=== PATIENT | female | born 1995 | race Caucasian/White ===

== ENCOUNTER → 2017-02-18 | Outpatient (CLI) | payer OTHER ==
[~2017-02-18] MED LIST: PROM25TA9 PO; TRAM-10 PO; ZFRODT/8 PO
[2017-02-18 19:55] LABS: BLOOD UREA NITROGEN 9 mg/dl (7-18); BUN/CREATININE RATIO 10.8 (10-20); CALCIUM 9.4 mg/dl (8.5-10.1); CARBON DIOXIDE 26 mmol/L (21-32); CHLORIDE 106 mmol/L (98-107); CREATININE 0.85 mg/dl (0.60-1.20); GLUCOSE 89 mg/dl (70-99); SODIUM 139 mmol/L (136-145)
[2017-02-19 07:30] LABS: ESTIMATED AVERAGE GLUCOSE 100 mg/dl; HA1C FLAG Normal (Normal)
== END | disposition home or self-care (01) ==
LOC: C.LABPVFM 12:10
PROVIDERS: ATTEND Nurse Practitioner Family
DX: R53.1 Weakness (principal)

== ENCOUNTER → 2017-05-07 | Outpatient (CLI) | payer OTHER ==
[~2017-05-07] MED LIST changes: -PROM25TA9 PO; -TRAM-10 PO
== END | disposition home or self-care (01) ==
LOC: C.LABPVFM 11:49
PROVIDERS: ATTEND Family Medicine
DX: N12 Tubulo-interstitial nephritis, not specified as acute or chronic (principal)

== ENCOUNTER → 2017-06-24 | Outpatient (CLI) | payer OTHER ==
--- NOTE | 2017-06-24 09:54 | DIAGNOSTIC IMAGING REPORT ---
RETROPERITONEAL COMPLETE CLINICAL HISTORY: 22 years-old Female presenting with UTI. TECHNIQUE: Real-time grayscale and limited color Doppler ultrasound imaging of the kidneys and bladder was performed. COMPARISON: 02/19/[address] from 01/28/2016.. FINDINGS: Right kidney: Normal echogenicity. Right kidney measures 10 cm. No hydronephrosis. No convincing evidence of calculus or mass. Normal perfusion. Left kidney: Normal echogenicity. Left kidney measures 10.3 cm. No hydronephrosis. No convincing evidence of calculus or mass. Normal perfusion. Bladder: Mildly trabeculated bladder wall. Bilateral ureteral jets present. Other: None. IMPRESSION: 1. Normal renal ultrasound. No obstruction. 2. Mildly trabeculated bladder wall, nonspecific. This could be seen in the setting of obstruction or, more likely, chronic inflammation from cystitis. Electronically signed by: Abraham Stover M.D. 06/24/2017 9:53 AM Dictated Date/Time: 06/24/2017 9:51 AM
== END | disposition home or self-care (01) ==
LOC: C.ULTR 09:19
PROVIDERS: ATTEND Nurse Practitioner Adult Health
DX: N39.0 Urinary tract infection, site not specified (principal)

== ENCOUNTER → 2017-08-03 | Outpatient (CLI) | payer OTHER ==
[2017-08-05 23:56] LABS: GUINEA PIG ALLERGEN IGE <0.10 KU/L; GUINEA PIG CLASS 0
== END | disposition home or self-care (01) ==
LOC: C.LABPVFM 14:11
PROVIDERS: ATTEND Family Medicine Adult Medicine
DX: J34.89 Other specified disorders of nose and nasal sinuses (principal)

== ENCOUNTER → 2017-08-13 | Outpatient (CLI) | payer OTHER ==
[2017-08-13 12:29] LABS: BASO % 0.6 %; BASO ABS # 0.04 K/uL (0-0.2); COMPLETE YES; EOS % 2.5 %; HEMATOCRIT 44.7 % (37-47); IG% 0.1 %; LYMPH % 42.1 %; MEAN CELL VOLUME 85.8 fL (80-100); MEAN CORPUSCULAR HEMOGLOBIN 29.9 pg (25-34); MEAN CORPUSCULAR HGB CONC 34.9 g/dl (32-36); MEAN PLATELET VOLUME 10.3 fL (7.4-10.4); MONO % 9.4 %; NEUT % 45.3 %; PLATELET COUNT 205 K/uL (130-400); RED BLOOD COUNT 5.21 M/uL (4.2-5.4); WHITE BLOOD COUNT 7.12 K/uL (4.8-10.8)
[2017-08-13 13:15] LABS: BLOOD UREA NITROGEN 13 mg/dl (7-18); BUN/CREATININE RATIO 15.3 (10-20); CALCIUM 9.3 mg/dl (8.5-10.1); CARBON DIOXIDE 25 mmol/L (21-32); CHLORIDE 106 mmol/L (98-107); CREATININE 0.83 mg/dl (0.60-1.20); GLUCOSE 81 mg/dl (70-99); POTASSIUM 3.9 mmol/L (3.5-5.1); SODIUM 138 mmol/L (136-145)
== END | disposition home or self-care (01) ==
LOC: C.LABPVFM 10:08
PROVIDERS: ATTEND Family Medicine
DX: R55 Syncope and collapse (principal)

== ENCOUNTER 2017-09-27 16:42 | Emergency (ER) | payer OTHER ==
[~2017-09-27] VITALS: Ht 157.5 cm; Wt 49.3 kg
[2017-09-27 16:47] VITALS: TEMP 36.9; Ht 157.5 cm; Wt 49.3 kg
--- NOTE | 2017-09-27 17:13 | EMERGENCY ROOM VISIT NOTE ---
History First contact with patient: 16:54 Chief Complaint: ABDOMINAL PAIN Stated Complaint: PAIN IN STOMACH Nursing Triage Summary: "I've been having pains in my stomach. It started yesterday." She relates bilateral pain from the umbilicus to beneath the ribs. Nauseated. History of Present Illness The patient is a 22 year old female who presents to the Emergency Room with complaints of abdominal pain that started at approximately 8 AM this morning. The patient describes the pain as sharp and intermittent. It started in the left lower quadrant. She is now feeling it on the right side and also in the upper abdomen. He has been nauseated without vomiting. Her last bowel movement was this morning and reported normal. The patient does have a history of constipation. She also has a history of ovarian cysts. The patient denies any vaginal discharge or bleeding. She uses the Karly IUD for control. She is sexually active with one partner. She denies any fever or chills. She took ibuprofen with fairly good pain relief Review of Systems 10 system review performed and negative unless noted in HPI or below Past Medical/Surgical History Medical Problems: (1) Dehydration, mild (2) Enterocolitis (3) No Known Active Medical Problems Constipation, ovarian cysts Social History Smoking Status: Current Every Day Smoker Alcohol Use: none Marital Status: single Housing Status: lives with significant other Current/Historical Medications No Active Prescriptions or Reported Meds Physical Exam Vital Signs Date Time Temp Pulse Resp B/P (MAP) Pulse Ox O2 Delivery O2 Flow Rate FiO2 09/27/17 22:52 78 18 98/63 99 Room Air 09/27/17 20:28 81 16 106/67 97 Room Air 09/27/17 19:01 83 16 107/70 100 Room Air 09/27/17 16:47 36.9 97 20 103/67 100 Room Air Physical Exam VITALS: Vitals are noted on the nurse's note and reviewed by myself. Vital signs stable. GENERAL: 22-year-old female, in no acute distress, nondiaphoretic, well- developed well-nourished. SKIN: The skin was without rashes, erythema, edema, or bruising. HEAD: Normocephalic atraumatic. MOUTH: Mucous membranes moist. NECK: Supple without nuchal rigidity. No lymphadenopathy. Cervical spine is nontender. No JVD. HEART: Regular rate and rhythm without murmurs gallops or rubs. LUNGS: Clear to auscultation bilaterally without wheezes, rales or rhonchi. No accessory muscle use. ABDOMEN: Positive bowel sounds x 4.Soft, tenderness to palpation in the left lower quadrant and right lower quadrant, without organomegaly. No guarding or rebound tenderness. MUSCULOSKELETAL: No muscle atrophy, erythema, or edema noted.. Strength 5/5 throughout. NEURO: Patient was alert and oriented to person place and time. Normal sensation to touch. No focal neurological deficits. Medical Decision & Procedures ER Provider Diagnostic Interpretation: CT abdomen and pelvis IV and oral contrast Patient Name: KRYSTEN TERRELL Unit Number: [id number] Dictated: 09/27/172246 Transcribed: 09/27/172246 [employer] Printed Date/Time: [~ rep prt dt]/[~ rep prt tm] [~ rep ct labl] - [~ rep ct ivnm] [facility] Radiology Department [place] [id number] Dictated: 09/27/172246 Transcribed: 09/27/172246 [employer] Printed Date/Time: [~ rep prt dt]/[~ rep prt tm] [~ rep ct labl] - [~ rep ct ivnm] IMPRESSION: 1. Moderate bladder wall thickening. This likely represents a cystitis. Recommend correlation with urinalysis. 2. No bowel wall thickening or obstruction. 3. Normal appendix. Electronically signed by: Lennox Richardson M.D. 09/27/2017 10:54 PM Dictated Date/Time: 09/27/2017 10:47 PM The status of this report is Signed. Draft = Not yet reviewed or approved by Radiologist. Signed = Reviewed and approved by Radiologist. <AttendingPhy></AttendingPhy> <FamilyPhy>Lisette Ellington C.R.NMichaelP</FamilyPhy> < PrimaryPhy>Lisette Ellington C.R.N.P</PrimaryPhy> <UnitNumber>[id number]</ UnitNumber> <VisitNumber>[id number]</VisitNumber> <PatientName>KRYSTEN TERRELL</PatientName> <DateOfBirth>1995</DateOfBirth> <Location>[facility]</ Location> <ServiceDate>09/27/17</ServiceDate> <MNE>ESINDI</MNE> <OrderingPhy> Paty Varghese PA-C</OrderingPhy> <OrderingPhyMNE>f rep ord dr chacko</ OrderingPhyMNE> <DictatingPhyMNE>f rep dict dr chacko</DictatingPhyMNE> <CCListMNE> f rep ct mne</CCListMNE> <AdmittingPhyMNE>f pt admit dr chacko</AdmittingPhyMNE> < AttendingPhyMNE>f pt attend dr chacko</AttendingPhyMNE> <ConsultingPhyMNE>f pt consult dr chacko</ConsultingPhyMNE> <FamilyPhyMNE>f pt fam dr chacko</FamilyPhyMNE> <OtherPhyMNE>f pt other dr chacko</OtherPhyMNE> < PrimaryPhyMNE>f pt prim care dr chacko</PrimaryPhyMNE> <ReferringPhyMNE>f pt referring dr chacko</ReferringPhyMNE> Pelvic ultrasound Patient Name: KRYSTEN TERRELL Unit Number: [id number] Dictated: 09/27/171920 Transcribed: 09/27/171920 Tuee Printed Date/Time: [~ rep prt dt]/[~ rep prt tm] [~ rep ct labl] - [~ rep ct ivnm] [facility] [place] [address] Dictated: 09/27/171920 Transcribed: 09/27/171920 [employer] Printed Date/Time: [~ rep prt dt]/[~ rep prt tm] [~ rep ct labl] - [~ rep ct ivnm] IMPRESSION: No significant abnormality identified within the pelvis. The intrauterine device is in good position. Electronically signed by: Lennox Richardson M.D. 09/27/2017 7:22 PM Dictated Date/Time: 09/27/2017 7:21 PM The status of this report is Signed. Draft = Not yet reviewed or approved by Radiologist. Signed = Reviewed and approved by Radiologist. <AttendingPhy></AttendingPhy> <FamilyPhy>Lisette Ellington C.R.N.P</FamilyPhy> < PrimaryPhy>Lisette Ellington C.R.N.P</PrimaryPhy> <UnitNumber>[id number]</ UnitNumber> <VisitNumber>[id number]</VisitNumber> <PatientName>KRYSTEN TERRELL</PatientName> <DateOfBirth>1995</DateOfBirth> <Location>[facility]</ Location> <ServiceDate>09/27/17</ServiceDate> <MNE>ESINDI</MNE> <OrderingPhy> Paty Varghese PA-C</OrderingPhy> <OrderingPhyMNE>f rep ord dr chacko</ OrderingPhyMNE> <DictatingPhyMNE>f rep dict dr chacko</DictatingPhyMNE> <CCListMNE> f rep ct mne</CCListMNE> <AdmittingPhyMNE>f pt admit dr chacko</AdmittingPhyMNE> < AttendingPhyMNE>f pt attend dr chacko</AttendingPhyMNE> <ConsultingPhyMNE>f pt consult dr chacko</ConsultingPhyMNE> <FamilyPhyMNE>f pt fam dr chacko</FamilyPhyMNE> <OtherPhyMNE>f pt other dr chacko</OtherPhyMNE> < PrimaryPhyMNE>f pt prim care dr chacko</PrimaryPhyMNE> <ReferringPhyMNE>f pt referring dr chacko</ReferringPhyMNE> Laboratory Results 09/27/17 16:57 Red Blood Count 4.73, Mean Corpuscular Volume 86.0, Mean Corpuscular Hemoglobin 30.0, Mean Corpuscular Hemoglobin Concent 34.9, Mean Platelet Volume 9.6, Neutrophils (%) (Auto) 78.2, Lymphocytes (%) (Auto) 16.5, Monocytes (%) (Auto) 4.6, Eosinophils (%) (Auto) 0.3, Basophils (%) (Auto) 0.2, Neutrophils # (Auto) 10.29, Lymphocytes # (Auto) 2.17, Monocytes # (Auto) 0.60, Eosinophils # (Auto) 0.04, Basophils # (Auto) 0.02 09/27/17 16:57 Test 09/27/17 16:57 09/27/17 18:25 White Blood Count 13.15 K/uL (4.8-10.8) Red Blood Count 4.73 M/uL (4.2-5.4) Hemoglobin 14.2 g/dL (12.0-16.0) Hematocrit 40.7 % (37-47) Mean Corpuscular Volume 86.0 fL (80-100) Mean Corpuscular Hemoglobin 30.0 pg (25-34) Mean Corpuscular Hemoglobin Concent 34.9 g/dl (32-36) Platelet Count 178 K/uL (130-400) Mean Platelet Volume 9.6 fL (7.4-10.4) Neutrophils (%) (Auto) 78.2 % Lymphocytes (%) (Auto) 16.5 % Monocytes (%) (Auto) 4.6 % Eosinophils (%) (Auto) 0.3 % Basophils (%) (Auto) 0.2 % Neutrophils # (Auto) 10.29 K/uL (1.4-6.5) Lymphocytes # (Auto) 2.17 K/uL (1.2-3.4) Monocytes # (Auto) 0.60 K/uL (0.11-0.59) Eosinophils # (Auto) 0.04 K/uL (0-0.5) Basophils # (Auto) 0.02 K/uL (0-0.2) RDW Standard Deviation 40.0 fL (36.4-46.3) RDW Coefficient of Variation 12.6 % (11.5-14.5) Immature Granulocyte % (Auto) 0.2 % Immature Granulocyte # (Auto) 0.03 K/uL (0.00-0.02) Anion Gap 10.0 mmol/L (3-11) Est Creatinine Clear Calc Drug Dose 91.9 ml/min Estimated GFR () 130.9 Estimated GFR (Non- 112.9 BUN/Creatinine Ratio 15.8 (10-20) Calcium Level 9.3 mg/dl (8.5-10.1) Total Bilirubin 1.0 mg/dl (0.2-1) Aspartate Amino Transf (AST/SGOT) 17 U/L (15-37) Alanine Aminotransferase (ALT/SGPT) 32 U/L (12-78) Alkaline Phosphatase 69 U/L (45-117) Total Protein 7.6 gm/dl (6.4-8.2) Albumin 4.2 gm/dl (3.4-5.0) Globulin 3.4 gm/dl (2.5-4.0) Albumin/Globulin Ratio 1.2 (0.9-2) Lipase 144 U/L (73-393) Urine Color YELLOW Urine Appearance CLEAR (CLEAR) Urine pH 5.0 (4.5-7.5) Urine Specific [place] 1.015 (1.000-1.030) Urine Protein NEG (NEG) Urine Glucose (UA) NEG (NEG) Urine Ketones NEG (NEG) Urine Occult Blood TRACE (NEG) Urine Nitrite NEG (NEG) Urine Bilirubin NEG (NEG) Urine Urobilinogen NEG (NEG) Urine Leukocyte Esterase SMALL (NEG) Urine WBC (Auto) 1-5 /hpf (0-5) Urine RBC (Auto) 0-4 /hpf (0-4) Urine Hyaline Casts (Auto) 1-5 /lpf (0-5) Urine Epithelial Cells (Auto) >30 /lpf (0-5) Urine Bacteria (Auto) NEG (NEG) Urine Test NEG (NEG) Medications Administered Medications (Trade) Dose Ordered Sig/Elissa Route Start Time Stop Time Status Last Admin Dose Admin Morphine Sulfate (MoRPHine SULFATE INJ) 4 mg Q1H PRN IV 09/27/17 19:15 10/11/17 19:14 09/27/17 19:26 4 MG Ondansetron HCl (Zofran Inj) 4 mg Q2H PRN IV 09/27/17 19:15 10/27/17 19:14 09/27/17 20:27 4 MG ED Course Patient was seen and examined Vital signs including blood pressure were reviewed medications list was verified with patient Labs were obtained, and a saline lock was established The patient was reassessed after ultrasound. She was complaining of pain. She was given morphine 4 mg IV. She was also given Zofran [address] was ordered and reviewed. The findings were discussed with the patient. She voiced understanding. The patient was complaining of nausea, however this is improved. She is comfortable being discharged home. She was given a home pack of tramadol and Phenergan I reviewed discharge instructions the patient. They voiced understanding and had no further questions. Medical Decision DIFFERENTIAL DIAGNOSIS: Gastroenteritis, Hepatitis, cholecystitis, cholangitis, biliary colic, pancreatitis, appendicitis, inguinal hernia, nephrolithiasis, inflammatory bowel disease, mesenteric adenitis, peptic ulcer disease, GERD, gastritis, pancreatitis,, bowel obstruction, splenic infarct, diverticulitis, mesenteric ischemia, metabolic, peritonitis, ovarian cyst, ovarian torsion, ectopic , uterine fibroid This patient is a 22-year-old female that presents emergency department with sharp, intermittent lower abdominal pain on exam, she was tender in the left lower and right lower quadrants. There is no guarding or rebound tenderness. She was nontoxic in appearance. She is afebrile. I thought she may have a recurrent ovarian cysts. Her labs reveal mild leukocytosis. Her pelvic ultrasound did not show any signs of abnormalities. I ordered a CT of the abdomen to rule out appendicitis. This was negative for any acute findings. The patient to get nauseous in the emergency department. I believe this is likely secondary to the morphine she received for pain. When I reevaluated her , she was resting comfortably in bed. She denied any nausea. The pain was improved. We discussed disposition options. She was comfortable being discharged home. I believe that her pain and nausea could be coming from some constipation, which is chronic in nature. She was instructed to take a stool softener daily and addition to one dose of MiraLAX tomorrow. She will follow a bland diet. She was instructed to follow up closely with her primary care physician. She will call tomorrow morning for a follow-up appointment. She will also return to the emergency department with a new, worsening or persistent symptoms This chart was completed in part utilizing [employer] Speech Voice Recognition software. Attempts were made to minimize the grammatical errors, random word insertions, pronoun errors and incomplete sentences. Any formal questions or concerns about the content, text or information contained within the body of this dictation should be directly addressed to the provider for clarification. Medication Reconcilliation Current Medication List: was personally reviewed by me Blood Pressure Screening Patient's blood pressure: Normal blood pressure Impression Primary Impression: Abdominal pain Departure Information Dispostion Home / Self-Care Condition GOOD Prescriptions Promethazine Hcl (Phenergan) 25 Mg Tab 25 MG PO Q6H Y for Nausea, #10 TAB Prov: Paty Varghese PA-C 09/27/17 Tramadol (Ultram) 50 Mg Tab 50 MG PO Q4H Y for Pain, #9 TAB Prov: Paty Varghese PA-C 09/27/17 Referrals Lisette Ellington C.R.N.P (PCP) Patient Instructions My [facility] Additional Instructions You were evaluated in the emergency department for abdominal pain and nausea. Please take Phenergan every 6 hours as needed for nausea. Ibuprofen 400 mg and/or Tylenol 500 mg every 8 hours. You may also alternate these medications for more effective pain relief: Ibuprofen --4 HRS--> Tylenol --4 HRS--> ibuprofen --4 HRS--> Tylenol .... Please take Ultram for severe pain. 1 tab every 4 hours as needed. The CAT scan did reveal some constipation. Please take an [id number] stool softener such as Colace twice daily for 3 days. Please also take one dose of MiraLAX tomorrow morning Please follow-up with your primary care physician as soon as possible. Call tomorrow morning for a follow-up appointment. Please return to the emergency department with any new, worsening or concerning symptoms School Instructions Return To School: 1 day
[2017-09-27 17:17] LABS: BASO % 0.2 %; BASO ABS # 0.02 K/uL (0-0.2); COMPLETE YES; EOS % 0.3 %; HEMATOCRIT 40.7 % (37-47); IG% 0.2 %; LYMPH % 16.5 %; LYMPH ABS # 2.17 K/uL (1.2-3.4); MEAN CORPUSCULAR HGB CONC 34.9 g/dl (32-36); MEAN PLATELET VOLUME 9.6 fL (7.4-10.4); MONO % 4.6 %; NEUT % 78.2 %; PLATELET COUNT 178 K/uL (130-400); RED BLOOD COUNT 4.73 M/uL (4.2-5.4); WHITE BLOOD COUNT 13.15 K/uL (4.8-10.8)
[2017-09-27 17:30] LABS: BUN/CREATININE RATIO 15.8 (10-20); CALCIUM 9.3 mg/dl (8.5-10.1); CREATININE 0.76 mg/dl (0.60-1.20); POTASSIUM 3.4 mmol/L (3.5-5.1)
[2017-09-27 17:33] LABS: ALB/GLOB RATIO 1.2 (0.9-2)
[2017-09-27 18:40] LABS: URINE APPEARANCE CLEAR (CLEAR); URINE BILIRUBIN NEG (NEG); URINE COLOR YELLOW; URINE EPITHELIAL CELL AUTO >30 /lpf (0-5); URINE NITRITE NEG (NEG); URINE SPECIFIC GRAVITY 1.015 (1.000-1.030); UROBILINOGEN NEG (NEG)
[2017-09-27 18:43] LABS: MANUAL MICROSCOPIC REQUIRED? NO; REVIEW REQ? NO
[2017-09-27] MEDS ORDERED: MoRPHine SULFATE 4 MG/ML 1 ML CARP\\VIAL IV PRN (19:15)
--- NOTE | 2017-09-27 19:24 | DIAGNOSTIC IMAGING REPORT ---
PELVIC ULTRASOUND, TRANSABDOMINAL AND TRANSVAGINAL HISTORY: LLQ and RLQ abd pain hx of ovarian cysts COMPARISON: Pelvic ultrasound 03/05/2012. FINDINGS: Uterus: 7.8 x 3.0 x 5.0 cm. Endometrial stripe: 3 mm in thickness. The intrauterine device is in good position. Right ovary: Normal in size and demonstrates normal color flow. A 2.4 cm cyst. Left ovary: Normal in size and demonstrates normal color flow. Miscellaneous:No pelvic free fluid. IMPRESSION: No significant abnormality identified within the pelvis. The intrauterine device is in good position. Electronically signed by: Lennox Richardson M.D. 09/27/2017 7:22 PM Dictated Date/Time: 09/27/2017 7:21 PM
[2017-09-27] MEDS: ONDANSETRON INJ 2 MG/ML 2 ML VIAL IV PRN ×2 (19:25→20:27)
[2017-09-27] MEDS ORDERED: OPTIRAY 320 IV PRN (21:45)
[2017-09-27] MEDS ORDERED: PROMETHAZINE HCL INJ 12.5 MG in SODIUM CHLORIDE 0.9% 50ML 50 ML IV STA (22:11)
--- NOTE | 2017-09-27 22:55 | DIAGNOSTIC IMAGING REPORT ---
ABDOMEN AND PELVIS CT WITH IV AND ORAL CONTRAST CT DOSE: 272.04 mGy.cm HISTORY: Right lower quadrant and left lower quadrant pain. TECHNIQUE: Multiaxial CT images of the abdomen and pelvis were performed following the use of intravenous and oral contrast. A dose lowering technique was utilized adhering to the principles of ALARA. COMPARISON STUDY: Pelvic ultrasound 09/27/2017. Abdomen and pelvis CT 01/28/2016. FINDINGS: The lung bases are clear. No pneumoperitoneum. No pneumatosis. No fractures within the visualized osseous structures. The liver, gallbladder, spleen, adrenal glands, and pancreas are unremarkable. There is a left circumaortic renal vein. No retroperitoneal lymphadenopathy. A 2.2 cm right ovarian cyst. Normal left ovary. The intrauterine device is in good position. There are few subcentimeter bilateral renal hypodense lesions. These are too small to characterize but favor cysts. No hydronephrosis. Moderate bladder wall thickening. No bowel wall thickening or obstruction. Normal appendix. IMPRESSION: 1. Moderate bladder wall thickening. This likely represents a cystitis. Recommend correlation with urinalysis. 2. No bowel wall thickening or obstruction. 3. Normal appendix. Electronically signed by: Lennox Richardson M.D. 09/27/2017 10:54 PM Dictated Date/Time: 09/27/2017 10:47 PM
[2017-09-27] MEDS ORDERED: PROM25TA9 PO (23:12)
[2017-09-27] MEDS ORDERED: TRAM-10 PO (23:12)
[2017-09-27] MEDS ORDERED: TRAMADOL HCL 50 MG HOME PACK PO ONE (23:15)
[2017-09-27] MEDS ORDERED: PHENERGAN 25MG HOMEPACK PO ONE (23:15)
[2017-09-27 23:44] VITALS: BP 100/62; PULSE 72; O2SAT 98
== END 2017-09-27 23:46 | disposition home or self-care (01) ==
LOC: C.EDB 16:43 → C.EDC 23:46
DX: R10.84 Generalized abdominal pain (principal); R11.0 Nausea; K59.00 Constipation, unspecified; F17.200 Nicotine dependence, unspecified, uncomplicated; N83.209 Unspecified ovarian cyst, unspecified side

== ENCOUNTER → 2017-09-29 | Outpatient (CLI) | payer OTHER ==
[~2017-09-29] MED LIST changes: +PROM25TA9 PO; +TRAM-10 PO; -ZFRODT/8 PO
== END | disposition home or self-care (01) ==
LOC: C.LABPVFM 12:49
PROVIDERS: ATTEND Nurse Practitioner
DX: N39.0 Urinary tract infection, site not specified (principal)

== ENCOUNTER → 2017-09-29 | Outpatient (CLI) | payer OTHER ==
[2017-10-02 12:09] LABS: CHLAMYDIA TRACH RNA*** NOT DETECTED (NOT DETECTED); GC (NEIS GONORRHOEAE)RNA** NOT DETECTED (NOT DETECTED); TRICHOMONAS VAGINALIS RNA** NOT DETECTED (NOT DETECTED)
== END | disposition home or self-care (01) ==
LOC: C.LABSPEC 17:37
PROVIDERS: ATTEND Physician Assistant
DX: N89.8 Other specified noninflammatory disorders of vagina (principal)

== ENCOUNTER → 2017-12-01 | Outpatient (CLI) | payer OTHER | END | disposition home or self-care (01) | LOC: C.LAB1850 09:41 | PROVIDERS: ATTEND Physician Assistant | DX: Z33.1 Pregnant state, incidental (principal) ==

== ENCOUNTER → 2017-12-31 | Outpatient (CLI) | payer OTHER ==
[2017-12-31 13:40] LABS: PROLACTIN 10.43 ng/mL
[2017-12-31 13:41] LABS: LUTEINIZING HORMONE 13.7 IU/L
[2017-12-31 13:42] LABS: FOLLICLE STIMULAT HORMONE 6.67 IU/L
== END | disposition home or self-care (01) ==
LOC: C.LAB1850 10:49
PROVIDERS: ATTEND Physician Assistant
DX: N92.6 Irregular menstruation, unspecified (principal)

== ENCOUNTER 2020-09-24 10:45 | Inpatient (IN) ==
[2020-09-24] MEDS ORDERED: OXYTOCIN 30 UNITS/500 ML BAG IV PRN (12:04)
--- NOTE | 2020-09-24 12:11 | History & Physical Report ---
Date of Service September 24, 2020 Assessment & Plan (1) Uterine contractions at greater than 20 weeks of gestation: 25 years old G1, P0 at 39 weeks and 5 days of gestation, presenting to labor and delivery with contractions and cervical change. Vital signs stable afebrile, heart rate reassuring, GBS negative, Plan to admit monitor and epidural for pain per patient request and anticipate vaginal delivery. All questions were answered. (2) Tobacco smoking affecting : History of Present Illness Primary Care Provider: Elvis Prieto DO Patient is a 25-year-old G1, P0 at 39 weeks and 5 days of gestation who is presenting today with uterine contractions started at 1 AM and got more regular and painful. after 6 AM She was here in labor and delivery this morning and her cervix was 1 cm and was sent home. She denies leakage of fluid or vaginal bleeding. She reports good movements. Her has been complicated by tobacco use and history of septum/arcuate uterus. growth has been normal per ultrasound. GBS negative. Allergies Allergy/AdvReac Type Severity Reaction Status Date / Time No Known Allergies Allergy Mild Unverified 03/28/20 04:11 Home Medications Medication Instructions Recorded Confirmed Type iron 1 tab PO DAILY 09/24/20 09/24/20 History [id number] 1 tab PO DAILY 09/24/20 09/24/20 History [] Patient History Medical History ASCUS (atypical squamous cells of undetermined significance) on gynecologic Papanicolaou smear complicating , antepartum Depression Infertility Surgical History History of tonsillectomy and adenoidectomy Social History Smoking Status: Current every day smoker Tobacco Type: Cigarettes Cigarettes Per Day: 10; Hx Alcohol Use: No Hx Substance Use: No Preferred Language: Chinese Communication Ability: Effective 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 Review of Systems All systems reviewed & are unremarkable except as noted in HPI & below Physical Exam Constitutional: WD/WN, vitals as above well developed, well nourished and + acute distress (with contractions) Gastrointestinal (Abdomen): normal bowel sounds, soft, nontender, no hepatosplenomegaly (gravid, Prudencio 6-7 lb) Genitourinary: normal external appearance OB Exam Abdomen: + vertex Manual OB Exam: + cervical dilation 4 cm, + cervical effacement 70% and + station -2 OB Exam Monitor Tracing: + external uterine monitor used and + category I Results & Data ([facility]) Vital Signs (Past 12 Hours) Vital Signs Temp Pulse Resp BP 09/24/20 11:10 18 09/24/20 11:01 18 09/24/20 10:51 36.5 C 85 20 109/66
[2020-09-24 12:26] LABS: Hematocrit (blood only) 37.1 % (37-47); Hemoglobin 12.5 g/dL (12.0-16.0); Mean Corpuscular Hemoglobin 30.6 pg (25-34); Mean Corpuscular Hgb Conc 33.7 g/dL (32-36); Mean Corpuscular Volume 90.9 fL (80-100); Mean Platelet Volume 10.6 fL (7.4-10.4); Platelet Count 256 K/uL (130-400); RDW Coefficient of Variation 13.9 % (11.5-14.5); RDW Standard Deviation 45.9 fL (36.4-46.3); Red Blood Count 4.08 M/uL (4.2-5.4)
[2020-09-24] MEDS ORDERED: SODIUM CHLORIDE 0.9% INJ 10 ML VIAL ONE (14:36)
[2020-09-24] MEDS ORDERED: ePHEDrine sulfate 50 MG/ML AMP ONE (14:36)
[2020-09-24] MEDS ORDERED: BUPIVACAINE 0.25% 30 ML VIAL ONE ×2 (14:37→21:27)
[2020-09-24] MEDS ORDERED: fentaNYL citrate 100 MCG/2 ML VIAL ONE ×2 (14:37→21:27)
[2020-09-24] MEDS ORDERED: fentaNYL 2MCG/ML ROPIVACAINE 1.25MG/ML 100 ML BAG EPI ONE (14:37)
[2020-09-24] MEDS: LACTATED RINGER'S 1,000 ML IV PRN ×4 (14:41→22:47)
--- NOTE | 2020-09-24 14:55 | Anesthesiology Consultation ---
Date of Service September 24, 2020 Assessment & Plan (1) Encounter for pre-operative examination: Chart Review Chart Review: Acceptable Risk for Labor Epidural Consults Requested none ASA ASA2 Proposed Anesthesia Anesthesia Type: Labor Epidural Risk / Benefits Reviewed With: PT / POA / Parent / Guardian, Accepts Plan and Informed Consent Obtained History Height/Weight Height: 5 ft 2 in Weight: 65.317 kg Allergies Allergy/AdvReac Type Severity Reaction Status Date / Time No Known Allergies Allergy Mild Unverified 03/28/20 04:11 Medications Home Medications Medication Instructions Recorded Confirmed Last Taken iron 1 tab PO DAILY 09/24/20 09/24/20 09/23/20 08:00 [id number] 1 tab PO DAILY 09/24/20 09/24/20 1 Day Ago [] ~09/23/20 Active Medications Generic Name Dose Route Start Last Admin Trade Name Freq PRN Reason Stop Dose Admin Lactated Ringer's 1,000 mls @ 150 mls/hr 09/24/20 12:04 09/24/20 14:41 Lr IV 09/26/20 12:03 999 mls/hr .[id number] PRN Administration L&D Protocol Protocol Past Medical History Medical History ASCUS (atypical squamous cells of undetermined significance) on gynecologic Papanicolaou smear complicating , antepartum Depression Infertility Exercise / Class Metabolic Activity II 4-5 Yardwork/Stairs/Walk up hill Past Surgical History Surgical History History of tonsillectomy and adenoidectomy Past Anesthesia History No Hx of Anesthesia Complications and No Family Hx of Anesthesia Complications History of PONV No Hx of PONV and No Hx of Motion Sickness Social History Smoking Status: Current every day smoker tobacco type: cigarettes Smoking cigarettes per day: 10 Hx Alcohol Use: No Hx Substance Use: No Physical Exam Vital Signs Last Vital Signs Temp 97.5 F L 09/24/20 14:00 Pulse 89 09/24/20 14:49 Resp 18 09/24/20 14:30 BP 117/66 09/24/20 14:38 Pulse Ox 97 09/24/20 14:49 ENMT Mouth: no dentition abnormality Thyromental Distance: > or= 3.5 Finger Breadths Mallampati Class: II Neck normal visual inspection Respiratory normal respiratory effort Auscultation: lungs clear to auscultation bilaterally Cardiovascular Rate/Rhythm: regular rate and regular rhythm Testing Laboratory Results 09/24/20 12:16
[2020-09-24] MEDS ORDERED: NALOXONE HCL 0.4 MG/1 ML VIAL/CARP IV PRN (15:17)
[2020-09-24] MEDS ORDERED: NALOXONE HCL 1 MG in SODIUM CHLORIDE 0.9% 1000ML 1,000 ML IV PRN (15:17)
[2020-09-24] MEDS ORDERED: ONDANSETRON INJ 2 MG/ML 2 ML VIAL IV PRN (15:17)
[2020-09-24] MEDS ORDERED: fentaNYL 2MCG/ML ROPIVACAINE 1.25MG/ML 100 ML BAG EPI PRN (15:17)
[2020-09-24] MEDS ORDERED: ePHEDrine sulfate 50 MG/ML AMP IV PRN (15:17)
[2020-09-24] MEDS ORDERED: diphenhydrAMINE 50 MG/ML VIAL IV PRN (15:17)
[2020-09-24] MEDS: OXYTOCIN 30 UNITS/500 ML BAG IV PRN ×2 (16:13→23:02)
--- NOTE | 2020-09-24 16:29 | Obstetrical Progress Note ---
Date of Service September 24, 2020 Assessment & Plan Admission and Anticipated Discharge Date Admission Date: September 24, 2020 Subjective Patient is reevaluated She feels well, received epidural for pain and comfortable now VE; 5-6/ 80%/ -2, bulging bag, AROM'ed, light meconium stained fluid+ FHR categ I [place] irregular ctxs q 4-5 min, pitocin is at 2 miu/min Continue to monitor, augmentation with pitocin Results & Data ([facility]) Vital Signs (Past 12 Hours) Vital Signs Temp Pulse Resp BP Pulse Ox 09/24/20 16:24 81 96 09/24/20 16:19 90 97 09/24/20 16:14 74 96 09/24/20 16:10 70 109/64 09/24/20 16:09 71 96 09/24/20 16:05 74 113/64 09/24/20 16:04 78 96 09/24/20 16:01 69 109/64 09/24/20 15:59 74 97 09/24/20 15:55 72 114/68 09/24/20 15:54 71 96 09/24/20 15:50 75 108/65 09/24/20 15:49 73 97 09/24/20 15:46 79 110/64 09/24/20 15:44 80 97 09/24/20 15:40 80 107/59 L 09/24/20 15:39 80 97 09/24/20 15:35 75 112/61 09/24/20 15:34 76 97 09/24/20 15:31 79 116/63 09/24/20 15:30 36.7 C 09/24/20 15:29 82 98 09/24/20 15:25 82 112/62 09/24/20 15:24 81 97 09/24/20 15:23 81 113/65 09/24/20 15:21 81 110/62 09/24/20 15:19 79 108/61 98 09/24/20 15:17 73 115/63 09/24/20 15:15 91 H 115/62 09/24/20 15:14 91 H 106/60 98 09/24/20 15:09 78 97 09/24/20 15:04 92 H 98 09/24/20 14:59 88 98 09/24/20 14:54 91 H 98 09/24/20 14:49 89 97 09/24/20 14:44 79 97 09/24/20 14:39 83 98 09/24/20 14:38 83 117/66 09/24/20 14:30 18 09/24/20 14:00 36.4 C L 20 09/24/20 13:36 75 107/71 09/24/20 12:30 20 09/24/20 12:15 18 09/24/20 11:10 18 09/24/20 11:01 18 09/24/20 10:51 36.5 C 85 20 109/66
--- NOTE | 2020-09-24 18:44 | Obstetrical Progress Note ---
Date of Service September 24, 2020 Assessment & Plan Admission and Anticipated Discharge Date Admission Date: September 24, 2020 Subjective Patient is reevaluated FHR started to have early decelerations with ctxs only and good variability in between Then had prolonged decel to 90's to 100's, recovered with position changed, IVF bolus and Nasal O2 Pitocin was at 4 miu/min and stopped that point. VE; 7/ 90%/ 0, station, Rosenbaum catheter was placed to drain bladder FHR at 130's Continue to monitor closely Results & Data ([facility]) Vital Signs (Past 12 Hours) Vital Signs Temp Pulse Resp BP Pulse Ox 09/24/20 18:40 74 111/66 09/24/20 18:39 76 100 09/24/20 18:34 76 100 09/24/20 18:30 22 09/24/20 18:29 78 100 09/24/20 18:24 80 97/59 L 100 09/24/20 18:22 84 94/60 L 09/24/20 18:19 70 100 09/24/20 18:14 81 98 09/24/20 18:10 74 95/50 L 09/24/20 18:09 87 98 09/24/20 18:04 80 98 09/24/20 18:00 20 09/24/20 17:59 85 98 09/24/20 17:56 84 96/55 L 09/24/20 17:54 85 97 09/24/20 17:49 76 98 09/24/20 17:44 83 97 09/24/20 17:40 80 122/64 09/24/20 17:39 86 98 09/24/20 17:34 81 97 09/24/20 17:30 18 09/24/20 17:29 74 97 09/24/20 17:24 74 97/55 L 97 09/24/20 17:19 79 97 09/24/20 17:14 76 97 09/24/20 17:10 77 99/57 L 09/24/20 17:09 76 97 09/24/20 17:04 79 97 09/24/20 17:00 20 09/24/20 16:59 73 97 09/24/20 16:54 74 112/66 96 09/24/20 16:49 75 98 09/24/20 16:44 71 97 09/24/20 16:41 75 115/79 09/24/20 16:39 83 97 09/24/20 16:34 80 97 09/24/20 16:29 72 97 09/24/20 16:24 81 96 09/24/20 16:19 90 97 09/24/20 16:14 74 96 09/24/20 16:10 70 109/64 09/24/20 16:09 71 96 09/24/20 16:05 74 113/64 09/24/20 16:04 78 96 09/24/20 16:01 69 109/64 09/24/20 16:00 20 09/24/20 15:59 74 97 09/24/20 15:55 72 114/68 09/24/20 15:54 71 96 09/24/20 15:50 75 108/65 09/24/20 15:49 73 97 09/24/20 15:46 79 110/64 09/24/20 15:44 80 97 09/24/20 15:40 80 107/59 L 09/24/20 15:39 80 97 09/24/20 15:35 75 112/61 09/24/20 15:34 76 97 09/24/20 15:31 79 116/63 09/24/20 15:30 36.7 C 09/24/20 15:29 82 98 09/24/20 15:25 82 112/62 09/24/20 15:24 81 97 09/24/20 15:23 81 113/65 09/24/20 15:21 81 110/62 09/24/20 15:19 79 108/61 98 09/24/20 15:17 73 115/63 09/24/20 15:15 91 H 115/62 09/24/20 15:14 91 H 106/60 98 09/24/20 15:09 78 97 09/24/20 15:04 92 H 98 09/24/20 14:59 88 98 09/24/20 14:54 91 H 98 09/24/20 14:49 89 97 09/24/20 14:44 79 97 09/24/20 14:39 83 98 09/24/20 14:38 83 117/66 09/24/20 14:30 18 09/24/20 14:00 36.4 C L 20 09/24/20 13:36 75 107/71 09/24/20 12:30 20 09/24/20 12:15 18 09/24/20 11:10 18 09/24/20 11:01 18 09/24/20 10:51 36.5 C 85 20 109/66
[2020-09-24] MEDS ORDERED: TERBUTALINE SULFATE 1 MG/ML VIAL SQ ONE (20:11)
--- NOTE | 2020-09-24 20:19 | Obstetrical Progress Note ---
Date of Service September 24, 2020 Assessment & Plan Admission and Anticipated Discharge Date Admission Date: September 24, 2020 Subjective Patient is reevaluated FHR had decels to 80-90's Had 3 ctxs back to back in a row IVF bolus, nasal O2 started SC terbutaline was given ve; 8/90%/0 , Fse applied, FHR recovered to 130-140's with good variability Continue to monitor closely Results & Data ([facility]) Vital Signs (Past 12 Hours) Vital Signs Temp Pulse Resp BP Pulse Ox 09/24/20 20:14 82 99 09/24/20 20:10 67 117/69 09/24/20 20:09 66 100 09/24/20 20:04 103 H 99 09/24/20 19:59 79 99 09/24/20 19:54 84 99/55 L 98 09/24/20 19:49 79 98 09/24/20 19:44 78 99 09/24/20 19:40 77 99/57 L 09/24/20 19:39 77 100 09/24/20 19:34 84 100 09/24/20 19:29 73 100 09/24/20 19:25 83 117/67 09/24/20 19:24 82 100 09/24/20 19:19 71 100 09/24/20 19:14 79 100 09/24/20 19:09 71 107/67 100 09/24/20 19:04 78 100 09/24/20 19:00 36.8 C 18 09/24/20 18:59 79 100 09/24/20 18:54 80 110/66 100 09/24/20 18:49 78 100 09/24/20 18:44 81 100 09/24/20 18:40 74 111/66 09/24/20 18:39 76 100 09/24/20 18:34 76 100 09/24/20 18:30 22 09/24/20 18:29 78 100 09/24/20 18:24 80 97/59 L 100 09/24/20 18:22 84 94/60 L 09/24/20 18:19 70 100 09/24/20 18:14 81 98 09/24/20 18:10 74 95/50 L 09/24/20 18:09 87 98 09/24/20 18:04 80 98 09/24/20 18:00 20 09/24/20 17:59 85 98 09/24/20 17:56 84 96/55 L 09/24/20 17:54 85 97 09/24/20 17:49 76 98 09/24/20 17:44 83 97 09/24/20 17:40 80 122/64 09/24/20 17:39 86 98 09/24/20 17:34 81 97 09/24/20 17:30 18 09/24/20 17:29 74 97 09/24/20 17:24 74 97/55 L 97 09/24/20 17:19 79 97 09/24/20 17:14 76 97 09/24/20 17:10 77 99/57 L 09/24/20 17:09 76 97 09/24/20 17:04 79 97 09/24/20 17:00 20 09/24/20 16:59 73 97 09/24/20 16:54 74 112/66 96 09/24/20 16:49 75 98 09/24/20 16:44 71 97 09/24/20 16:41 75 115/79 09/24/20 16:39 83 97 09/24/20 16:34 80 97 09/24/20 16:29 72 97 09/24/20 16:24 81 96 09/24/20 16:19 90 97 09/24/20 16:14 74 96 09/24/20 16:10 70 109/64 09/24/20 16:09 71 96 09/24/20 16:05 74 113/64 09/24/20 16:04 78 96 09/24/20 16:01 69 109/64 09/24/20 16:00 20 09/24/20 15:59 74 97 09/24/20 15:55 72 114/68 09/24/20 15:54 71 96 09/24/20 15:50 75 108/65 09/24/20 15:49 73 97 09/24/20 15:46 79 110/64 09/24/20 15:44 80 97 09/24/20 15:40 80 107/59 L 09/24/20 15:39 80 97 09/24/20 15:35 75 112/61 09/24/20 15:34 76 97 09/24/20 15:31 79 116/63 09/24/20 15:30 36.7 C 11/23/20 15:29 82 98 09/24/20 15:25 82 112/62 09/24/20 15:24 81 97 09/24/20 15:23 81 113/65 09/24/20 15:21 81 110/62 09/24/20 15:19 79 108/61 98 09/24/20 15:17 73 115/63 09/24/20 15:15 91 H 115/62 09/24/20 15:14 91 H 106/60 98 09/24/20 15:09 78 97 09/24/20 15:04 92 H 98 09/24/20 14:59 88 98 09/24/20 14:54 91 H 98 09/24/20 14:49 89 97 09/24/20 14:44 79 97 09/24/20 14:39 83 98 09/24/20 14:38 83 117/66 09/24/20 14:30 18 09/24/20 14:00 36.4 C L 20 09/24/20 13:36 75 107/71 09/24/20 12:30 20 09/24/20 12:15 18 09/24/20 11:10 18 09/24/20 11:01 18 09/24/20 10:51 36.5 C 85 20 109/66
--- NOTE | 2020-09-24 21:02 | Obstetrical Progress Note ---
Date of Service September 24, 2020 Assessment & Plan Admission and Anticipated Discharge Date Admission Date: September 24, 2020 Subjective Patient is reevaluated FHR had been 140's with no decels, min-moderate variability Bed side US is done: direct OP, facing up, baby's spine is on posterior uterus, BPD 87 mm, 35+ wks, FHR 140's VE; 8/ 90%/ 0 to +1 Discussed what OP means to the patient is details Understands labor may take longer Plan to restart pitocin and monitor closely All questions were answered Results & Data ([facility]) Vital Signs (Past 12 Hours) Vital Signs Temp Pulse Resp BP Pulse Ox 09/24/20 20:55 98 H 123/72 09/24/20 20:54 97 H 100 09/24/20 20:49 96 H 100 09/24/20 20:44 93 H 100 09/24/20 20:39 92 H 123/67 100 09/24/20 20:34 101 H 100 09/24/20 20:29 104 H 100 09/24/20 20:25 97 H 129/68 09/24/20 20:24 97 H 100 09/24/20 20:19 89 100 09/24/20 20:14 82 99 09/24/20 20:10 67 117/69 09/24/20 20:09 66 100 09/24/20 20:04 103 H 99 09/24/20 19:59 79 99 09/24/20 19:54 84 99/55 L 98 09/24/20 19:49 79 98 09/24/20 19:44 78 99 09/24/20 19:40 77 99/57 L 09/24/20 19:39 77 100 09/24/20 19:34 84 100 09/24/20 19:29 73 100 09/24/20 19:25 83 117/67 09/24/20 19:24 82 100 09/24/20 19:19 71 100 09/24/20 19:14 79 100 09/24/20 19:09 71 107/67 100 09/24/20 19:04 78 100 09/24/20 19:00 36.8 C 18 09/24/20 18:59 79 100 09/24/20 18:54 80 110/66 100 09/24/20 18:49 78 100 09/24/20 18:44 81 100 09/24/20 18:40 74 111/66 09/24/20 18:39 76 100 09/24/20 18:34 76 100 09/24/20 18:30 22 09/24/20 18:29 78 100 09/24/20 18:24 80 97/59 L 100 09/24/20 18:22 84 94/60 L 09/24/20 18:19 70 100 09/24/20 18:14 81 98 09/24/20 18:10 74 95/50 L 09/24/20 18:09 87 98 09/24/20 18:04 80 98 09/24/20 18:00 20 09/24/20 17:59 85 98 09/24/20 17:56 84 96/55 L 09/24/20 17:54 85 97 09/24/20 17:49 76 98 09/24/20 17:44 83 97 09/24/20 17:40 80 122/64 09/24/20 17:39 86 98 09/24/20 17:34 81 97 09/24/20 17:30 18 09/24/20 17:29 74 97 09/24/20 17:24 74 97/55 L 97 09/24/20 17:19 79 97 09/24/20 17:14 76 97 09/24/20 17:10 77 99/57 L 09/24/20 17:09 76 97 09/24/20 17:04 79 97 09/24/20 17:00 20 09/24/20 16:59 73 97 09/24/20 16:54 74 112/66 96 09/24/20 16:49 75 98 09/24/20 16:44 71 97 09/24/20 16:41 75 115/79 09/24/20 16:39 83 97 09/24/20 16:34 80 97 09/24/20 16:29 72 97 09/24/20 16:24 81 96 09/24/20 16:19 90 97 09/24/20 16:14 74 96 09/24/20 16:10 70 109/64 09/24/20 16:09 71 96 09/24/20 16:05 74 113/64 09/24/20 16:04 78 96 09/24/20 16:01 69 109/64 09/24/20 16:00 20 09/24/20 15:59 74 97 09/24/20 15:55 72 114/68 09/24/20 15:54 71 96 09/24/20 15:50 75 108/65 09/24/20 15:49 73 97 09/24/20 15:46 79 110/64 09/24/20 15:44 80 97 09/24/20 15:40 80 107/59 L 09/24/20 15:39 80 97 09/24/20 15:35 75 112/61 09/24/20 15:34 76 97 09/24/20 15:31 79 116/63 09/24/20 15:30 36.7 C 09/24/20 15:29 82 98 09/24/20 15:25 82 112/62 09/24/20 15:24 81 97 09/24/20 15:23 81 113/65 09/24/20 15:21 81 110/62 09/24/20 15:19 79 108/61 98 09/24/20 15:17 73 115/63 09/24/20 15:15 91 H 115/62 09/24/20 15:14 91 H 106/60 98 09/24/20 15:09 78 97 09/24/20 15:04 92 H 98 09/24/20 14:59 88 98 09/24/20 14:54 91 H 98 09/24/20 14:49 89 97 09/24/20 14:44 79 97 09/24/20 14:39 83 98 09/24/20 14:38 83 117/66 09/24/20 14:30 18 09/24/20 14:00 36.4 C L 20 09/24/20 13:36 75 107/71 09/24/20 12:30 20 09/24/20 12:15 18 09/24/20 11:10 18 09/24/20 11:01 18 09/24/20 10:51 36.5 C 85 20 109/66
--- NOTE | 2020-09-24 21:47 | Anesthesiology Progress Note ---
Date of Service September 24, 2020 Assessment & Plan Admission and Anticipated Discharge Date Admission Date: September 24, 2020 Subjective Patient stated having increasing labor pains. Epidural was bolused with 50mcg of fentanyl. Patient stated having improved labor pains. Physical Exam Vital Signs: Last Vital Signs Temp 98.4 F 09/24/20 21:16 Pulse 92 H 09/24/20 21:44 Resp 20 09/24/20 21:16 BP 119/66 09/24/20 21:43 Pulse Ox 100 09/24/20 21:44 Results & Data ([facility]) Medications Administered Lactated Ringer's (Lr) 1,000 mls @ 150 mls/hr IV .[id number] PRN; Protocol PRN Reason: L&D Protocol Stop: 09/26/20 12:03 Last Infusion: 09/24/20 19:59 Dose: 999 mls/hr Documented by: [id number] Admin: 09/24/20 18:59 Dose: 150 mls/hr Documented by: [id number] Infusion: 09/24/20 18:55 Dose: 999 mls/hr Documented by: [id number] Infusion: 09/24/20 18:18 Dose: 999 mls/hr Documented by: [id number] Admin: 09/24/20 15:44 Dose: 150 mls/hr Documented by: [id number] Infusion: 09/24/20 15:42 Dose: 999 mls/hr Documented by: [id number] Admin: 09/24/20 14:41 Dose: 999 mls/hr Documented by: [id number] Oxytocin (Pitocin) 30 units in 500 mls @ 2 mls/hr IV .Q24H PRN; Protocol PRN Reason: Labor Induction/Augmentation Stop: 09/26/20 13:56 Last Titration: 09/24/20 21:00 Dose: 0.12 units/hr, 2 mls/hr Documented by: [id number] Titration: 09/24/20 18:18 Dose: 0 units/hr, 0 mls/hr Documented by: [id number] Titration: 09/24/20 17:00 Dose: 0.24 units/hr, 4 mls/hr Documented by: [id number] Admin: 09/24/20 16:13 Dose: 0.12 units/hr, 2 mls/hr Documented by: [id number] Cosigned by: [id number]
--- NOTE | 2020-09-24 23:26 | Obstetrical Progress Note ---
Date of Service September 24, 2020 Assessment & Plan Admission and Anticipated Discharge Date Admission Date: September 24, 2020 Subjective Patient is reevaluated. heart rate remained with recurrent early d ecelerations some with late components, good variability between. Category 2 Vaginal exam is unchanged. Cervix is 8 to 9 cm dilated 90% effaced head at 0 station, direct occiput posterior. I tried manual internal rotation and was able to rotate 45 degree and then it returned back to original direct OP by itself. Due to no cervical change and persistent occipitoposterior position and category 2 strip recommended delivery. Patient understands it is a major surgery with risks including but not limited to bleeding, infection, injury to surrounding organs like bowels bladder and ureters, blood clots in legs lungs, scarring and adhesion, risks of future C- sections. She understands all and signed an informed consent. All questions were answered. Results & Data ([facility]) Vital Signs (Past 12 Hours) Vital Signs Temp Pulse Resp BP Pulse Ox 09/24/20 23:19 105 H 100 09/24/20 23:14 92 H 112/71 100 09/24/20 23:09 93 H 100 09/24/20 23:04 103 H 100 09/24/20 22:59 104 H 99 09/24/20 22:58 95 H 116/63 09/24/20 22:54 102 H 99 09/24/20 22:49 97 H 100 09/24/20 22:44 91 H 100 09/24/20 22:41 95 H 119/54 L 09/24/20 22:39 92 H 108/58 L 100 09/24/20 22:38 96 H 115/57 L 09/24/20 22:36 87 100/57 L 09/24/20 22:34 94 H 100 09/24/20 22:33 113 H 133/62 09/24/20 22:31 93 H 122/73 09/24/20 22:29 99 H 109/58 L 100 09/24/20 22:27 100 H 121/65 09/24/20 22:25 88 117/66 09/24/20 22:24 87 100 09/24/20 22:23 95 H 126/74 09/24/20 22:21 92 H 128/74 09/24/20 22:19 93 H 124/73 99 11/23/20 22:17 88 121/74 11/23/20 22:15 101 H 121/73 09/24/20 22:14 93 H 100 09/24/20 22:13 88 123/68 09/24/20 22:11 97 H 133/68 09/24/20 22:09 96 H 125/75 100 09/24/20 22:07 96 H 124/66 09/24/20 22:05 90 124/66 09/24/20 22:04 87 100 09/24/20 22:03 86 118/68 09/24/20 22:01 91 H 118/73 09/24/20 21:59 90 122/71 100 09/24/20 21:57 89 121/72 09/24/20 21:55 96 H 119/73 09/24/20 21:54 100 H 99 09/24/20 21:53 88 115/71 09/24/20 21:51 97 H 127/74 09/24/20 21:49 87 120/71 100 09/24/20 21:47 98 H 118/69 09/24/20 21:45 99 H 124/71 09/24/20 21:44 92 H 100 09/24/20 21:43 88 119/66 09/24/20 21:41 88 116/68 09/24/20 21:39 95 H 116/70 100 09/24/20 21:37 96 H 118/69 09/24/20 21:35 100 H 115/68 09/24/20 21:34 92 H 116/72 100 09/24/20 21:29 90 99 09/24/20 21:24 104 H 115/70 100 09/24/20 21:19 119 H 100 09/24/20 21:16 36.9 C 20 09/24/20 21:14 120 H 100 09/24/20 21:09 96 H 104/59 L 100 09/24/20 21:04 97 H 100 09/24/20 20:59 96 H 100 09/24/20 20:55 98 H 123/72 09/24/20 20:54 97 H 100 09/24/20 20:49 96 H 100 09/24/20 20:44 93 H 100 09/24/20 20:39 92 H 123/67 100 09/24/20 20:34 101 H 100 09/24/20 20:29 104 H 100 09/24/20 20:25 97 H 129/68 09/24/20 20:24 97 H 100 09/24/20 20:19 89 100 09/24/20 20:14 82 99 09/24/20 20:10 67 117/69 09/24/20 20:09 66 100 09/24/20 20:04 103 H 99 09/24/20 19:59 79 99 09/24/20 19:54 84 99/55 L 98 09/24/20 19:49 79 98 09/24/20 19:44 78 99 09/24/20 19:40 77 99/57 L 09/24/20 19:39 77 100 09/24/20 19:34 84 100 09/24/20 19:29 73 100 09/24/20 19:25 83 117/67 09/24/20 19:24 82 100 09/24/20 19:19 71 100 09/24/20 19:14 79 100 09/24/20 19:09 71 107/67 100 09/24/20 19:04 78 100 09/24/20 19:00 36.8 C 18 09/24/20 18:59 79 100 09/24/20 18:54 80 110/66 100 09/24/20 18:49 78 100 09/24/20 18:44 81 100 09/24/20 18:40 74 111/66 09/24/20 18:39 76 100 09/24/20 18:34 76 100 09/24/20 18:30 22 09/24/20 18:29 78 100 09/24/20 18:24 80 97/59 L 100 09/24/20 18:22 84 94/60 L 09/24/20 18:19 70 100 09/24/20 18:14 81 98 09/24/20 18:10 74 95/50 L 09/24/20 18:09 87 98 09/24/20 18:04 80 98 09/24/20 18:00 20 09/24/20 17:59 85 98 09/24/20 17:56 84 96/55 L 09/24/20 17:54 85 97 09/24/20 17:49 76 98 09/24/20 17:44 83 97 09/24/20 17:40 80 122/64 09/24/20 17:39 86 98 09/24/20 17:34 81 97 09/24/20 17:30 18 09/24/20 17:29 74 97 09/24/20 17:24 74 97/55 L 97 09/24/20 17:19 79 97 09/24/20 17:14 76 97 09/24/20 17:10 77 99/57 L 09/24/20 17:09 76 97 09/24/20 17:04 79 97 09/24/20 17:00 20 09/24/20 16:59 73 97 09/24/20 16:54 74 112/66 96 09/24/20 16:49 75 98 09/24/20 16:44 71 97 09/24/20 16:41 75 115/79 09/24/20 16:39 83 97 09/24/20 16:34 80 97 09/24/20 16:29 72 97 09/24/20 16:24 81 96 09/24/20 16:19 90 97 09/24/20 16:14 74 96 09/24/20 16:10 70 109/64 09/24/20 16:09 71 96 09/24/20 16:05 74 113/64 09/24/20 16:04 78 96 09/24/20 16:01 69 109/64 09/24/20 16:00 20 09/24/20 15:59 74 97 09/24/20 15:55 72 114/68 09/24/20 15:54 71 96 09/24/20 15:50 75 108/65 09/24/20 15:49 73 97 09/24/20 15:46 79 110/64 09/24/20 15:44 80 97 09/24/20 15:40 80 107/59 L 09/24/20 15:39 80 97 09/24/20 15:35 75 112/61 09/24/20 15:34 76 97 09/24/20 15:31 79 116/63 09/24/20 15:30 36.7 C 09/24/20 15:29 82 98 09/24/20 15:25 82 112/62 09/24/20 15:24 81 97 09/24/20 15:23 81 113/65 09/24/20 15:21 81 110/62 09/24/20 15:19 79 108/61 98 09/24/20 15:17 73 115/63 09/24/20 15:15 91 H 115/62 09/24/20 15:14 91 H 106/60 98 09/24/20 15:09 78 97 09/24/20 15:04 92 H 98 09/24/20 14:59 88 98 09/24/20 14:54 91 H 98 09/24/20 14:49 89 97 09/24/20 14:44 79 97 09/24/20 14:39 83 98 09/24/20 14:38 83 117/66 09/24/20 14:30 18 09/24/20 14:00 36.4 C L 20 09/24/20 13:36 75 107/71 09/24/20 12:30 20 09/24/20 12:15 18
[2020-09-24] MEDS ORDERED: CITRIC ACID/SODIUM CITRATE 15 ML UDC PO ONE (23:30)
[2020-09-24] MEDS ORDERED: ceFAZolin 2000MG 2,000 MG/15 ML SYR IV ONE (23:30)
[2020-09-24] MEDS ORDERED: LACTATED RINGER'S 1,000 ML IV SCH (23:30)
[2020-09-24] MEDS ORDERED: AZITHROMYCIN 500 MG in DEXTROSE 5% 250 ML IV STA (23:55)
[2020-09-25] MEDS ORDERED: fentaNYL citrate 100 MCG/2 ML VIAL ONE ×2 (00:02→00:04)
[2020-09-25] MEDS ORDERED: MoRPHine SULFATE PF 1 MG/ML 10 ML AMP/VIAL ONE (00:06)
[2020-09-25] MEDS ORDERED: ONDANSETRON INJ 2 MG/ML 2 ML VIAL ONE (00:11)
[2020-09-25] MEDS ORDERED: LIDOCAINE/EPINEPHRINE 2% 1:200,000 20 ML SDV ONE (00:17)
[2020-09-25] MEDS ORDERED: NALOXONE HCL 0.08 MG in SYRINGE 1.8 ML IV PRN (00:19)
[2020-09-25] MEDS ORDERED: ePHEDrine sulfate 50 MG/ML AMP IV PRN (00:19)
[2020-09-25] MEDS ORDERED: MoRPHine SULFATE PF 1 MG/ML 10 ML AMP/VIAL INT SPINAL ONE (00:19)
[2020-09-25] MEDS ORDERED: NALOXONE HCL 0.4 MG/1 ML VIAL/CARP IV PRN (00:19)
[2020-09-25] MEDS ORDERED: LACTATED RINGER'S 500 ML IV PRN (00:19)
[2020-09-25] MEDS ORDERED: diphenhydrAMINE 50 MG/ML VIAL IV PRN ×2 (00:19→18:19)
[2020-09-25] MEDS ORDERED: OXYTOCIN 10 UNITS/ML VIAL ONE (00:19)
[2020-09-25] MEDS ORDERED: NALOXONE HCL 1 MG in SODIUM CHLORIDE 0.9% 1000ML 1,000 ML IV PRN (00:19)
[2020-09-25] MEDS ORDERED: LACTATED RINGER'S 1,000 ML IV SCH ×2 (00:22→09:00)
[2020-09-25] MEDS ORDERED: SODIUM CHLORIDE 0.9% 1000ML 1,000 ML IV SCH (00:30)
[2020-09-25] MEDS ORDERED: NO NARCOTICS OR SEDATIVES SCH (00:30)
[2020-09-25] MEDS ORDERED: DC INTRASPINAL MORPHINE SCH (00:30)
[2020-09-25] MEDS ORDERED: BENZOCAINE 20% AER SPR 82.5 GM CAN EXT PRN (00:42)
[2020-09-25] MEDS ORDERED: MEASLES, MUMPS & RUBELLA VIRUS VIAL SQ ONE (00:42)
[2020-09-25] MEDS ORDERED: SENNA 8.6 MG TAB PO PRN (00:42)
[2020-09-25] MEDS ORDERED: MAGNESIUM HYDROXIDE SUSP 30 ML UDC PO PRN (00:42)
[2020-09-25] MEDS ORDERED: HYDROCORTISONE ACETATE 25 MG SUPP PR PRN (00:42)
[2020-09-25] MEDS ORDERED: SUPERCREAM 0.870% 15 GM JAR EXT PRN (00:42)
[2020-09-25] MEDS ORDERED: DIPHTHERIA/TETANUS/PERTUSSIS 0.5 ML SYR/VIAL IM ONE (00:42)
--- NOTE | 2020-09-25 00:42 | Post Operative Brief Note ---
Immediate Post Op Note v1 Date of Surgery September 25, 2020 Pre & Post Diagnosis Operation Date: 09/24/20 23:00 Pre-Op Diagnosis: 1. Arrest of dilation 2. Direct OP 3. Category II tracing Post-Op Diagnosis: 1. Same 2. Delivery of live female child at 0003 on 09/25/20 I identified the patient and participated in the time-out.: Yes Procedure Operation Date: 09/24/20 23:00 Actual Procedures p Section in LD - Vin Diggs MD Surgeon Vin Diggs MD Utility Person Dr. Mendieta Estimated Blood Loss 600 Findings Consistent with Post-Op Diagnosis Drains Rosenbaum Catheter Anesthesia Type Labor Epidural Complications none Disposition Accompanied Patient To Recovery: Yes Disposition: L&D
[2020-09-25] MEDS ORDERED: OXYTOCIN 20 UNITS in D5W AND LACTATED RINGERS 1,000 ML IV SCH (00:45)
[2020-09-25] MEDS ORDERED: OXYTOCIN 20 UNITS in LACTATED RINGER'S 1,000 ML IV SCH (00:45)
--- NOTE | 2020-09-25 00:54 | Anesthesiology Progress Note ---
Date of Service September 25, 2020 Anesthesia Post Procedure Vital Signs Vital Signs: Temp Pulse Resp BP Pulse Ox 09/25/20 00:52 88 112/62 09/25/20 00:51 88 98 09/25/20 00:50 99 H 115/65 09/25/20 00:48 96 H 116/66 09/25/20 00:46 95 H 121/69 100 09/25/20 00:44 98 H 120/65 09/24/20 23:39 96 H 100 09/24/20 23:34 92 H 100 09/24/20 23:29 99 H 121/58 L 100 09/24/20 23:24 95 H 100 09/24/20 23:20 98.2 F 18 09/24/20 23:19 105 H 100 09/24/20 23:14 92 H 112/71 100 09/24/20 23:09 93 H 100 09/24/20 23:04 103 H 100 09/24/20 22:59 104 H 99 09/24/20 22:58 95 H 116/63 09/24/20 22:54 102 H 99 09/24/20 22:49 97 H 100 09/24/20 22:44 91 H 100 09/24/20 22:41 95 H 119/54 L 09/24/20 22:39 92 H 108/58 L 100 09/24/20 22:38 96 H 115/57 L 09/24/20 22:36 87 100/57 L 09/24/20 22:34 94 H 100 09/24/20 22:33 113 H 133/62 09/24/20 22:31 93 H 122/73 09/24/20 22:29 99 H 109/58 L 100 09/24/20 22:27 100 H 121/65 09/24/20 22:25 88 117/66 09/24/20 22:24 87 100 09/24/20 22:23 95 H 126/74 09/24/20 22:21 92 H 128/74 09/24/20 22:19 93 H 124/73 99 09/24/20 22:17 88 121/74 09/24/20 22:15 101 H 121/73 09/24/20 22:14 93 H 100 09/24/20 22:13 88 123/68 09/24/20 22:11 97 H 133/68 11/23/20 22:09 96 H 125/75 100 23/20 22:07 96 H 124/66 09/24/20 22:05 90 124/66 20 22:04 87 100 09/24/20 22:03 86 118/68 20 22:01 91 H 118/73 09/24/20 21:59 90 122/71 100 09/24/20 21:57 89 121/72 20 21:55 96 H 119/73 20 21:54 100 H 99 20 21:53 88 115/71 20 21:51 97 H 127/74 09/24/20 21:49 87 120/71 100 20 21:47 98 H 118/69 09/24/20 21:45 99 H 124/71 09/24/20 21:44 92 H 100 20 21:43 88 119/66 09/24/20 21:41 88 116/68 09/24/20 21:39 95 H 116/70 100 20 21:37 96 H 118/69 20 21:35 100 H 115/68 20 21:34 92 H 116/72 100 09/24/20 21:29 90 99 20 21:24 104 H 115/70 100 09/24/20 21:19 119 H 100 20 21:16 98.4 F 20 09/24/20 21:14 120 H 100 20 21:09 96 H 104/59 L 100 09/24/20 21:04 97 H 100 23/20 20:59 96 H 100 23/20 20:55 98 H 123/72 23/20 20:54 97 H 100 23/20 20:49 96 H 100 23/20 20:44 93 H 100 23/20 20:39 92 H 123/67 100 23/20 20:34 101 H 100 23/20 20:29 104 H 100 23/20 20:25 97 H 129/68 23/20 20:24 97 H 100 23/20 20:19 89 100 23/20 20:14 82 99 09/24/20 20:10 67 117/69 09/24/20 20:09 66 100 09/24/20 20:04 103 H 99 09/24/20 19:59 79 99 09/24/20 19:54 84 99/55 L 98 09/24/20 19:49 79 98 09/24/20 19:44 78 99 09/24/20 19:40 77 99/57 L 09/24/20 19:39 77 100 09/24/20 19:34 84 100 09/24/20 19:29 73 100 09/24/20 19:25 83 117/67 09/24/20 19:24 82 100 09/24/20 19:19 71 100 09/24/20 19:14 79 100 09/24/20 19:09 71 107/67 100 09/24/20 19:04 78 100 09/24/20 19:00 98.2 F 18 09/24/20 18:59 79 100 09/24/20 18:54 80 110/66 100 09/24/20 18:49 78 100 09/24/20 18:44 81 100 09/24/20 18:40 74 111/66 09/24/20 18:39 76 100 09/24/20 18:34 76 100 09/24/20 18:30 22 09/24/20 18:29 78 100 09/24/20 18:24 80 97/59 L 100 09/24/20 18:22 84 94/60 L 09/24/20 18:19 70 100 09/24/20 18:14 81 98 09/24/20 18:10 74 95/50 L 09/24/20 18:09 87 98 09/24/20 18:04 80 98 09/24/20 18:00 20 09/24/20 17:59 85 98 09/24/20 17:56 84 96/55 L 09/24/20 17:54 85 97 09/24/20 17:49 76 98 09/24/20 17:44 83 97 09/24/20 17:40 80 122/64 09/24/20 17:39 86 98 09/24/20 17:34 81 97 09/24/20 17:30 18 09/24/20 17:29 74 97 09/24/20 17:24 74 97/55 L 97 09/24/20 17:19 79 97 09/24/20 17:14 76 97 09/24/20 17:10 77 99/57 L 09/24/20 17:09 76 97 09/24/20 17:04 79 97 09/24/20 17:00 20 09/24/20 16:59 73 97 09/24/20 16:54 74 112/66 96 09/24/20 16:49 75 98 09/24/20 16:44 71 97 09/24/20 16:41 75 115/79 09/24/20 16:39 83 97 09/24/20 16:34 80 97 09/24/20 16:29 72 97 09/24/20 16:24 81 96 09/24/20 16:19 90 97 09/24/20 16:14 74 96 09/24/20 16:10 70 109/64 09/24/20 16:09 71 96 09/24/20 16:05 74 113/64 09/24/20 16:04 78 96 09/24/20 16:01 69 109/64 09/24/20 16:00 20 09/24/20 15:59 74 97 09/24/20 15:55 72 114/68 09/24/20 15:54 71 96 09/24/20 15:50 75 108/65 09/24/20 15:49 73 97 09/24/20 15:46 79 110/64 09/24/20 15:44 80 97 09/24/20 15:40 80 107/59 L 09/24/20 15:39 80 97 09/24/20 15:35 75 112/61 09/24/20 15:34 76 97 09/24/20 15:31 79 116/63 09/24/20 15:30 98.1 F 09/24/20 15:29 82 98 09/24/20 15:25 82 112/62 09/24/20 15:24 81 97 09/24/20 15:23 81 113/65 09/24/20 15:21 81 110/62 09/24/20 15:19 79 108/61 98 09/24/20 15:17 73 115/63 09/24/20 15:15 91 H 115/62 09/24/20 15:14 91 H 106/60 98 09/24/20 15:09 78 97 09/24/20 15:04 92 H 98 09/24/20 14:59 88 98 09/24/20 14:54 91 H 98 09/24/20 14:49 89 97 09/24/20 14:44 79 97 09/24/20 14:39 83 98 09/24/20 14:38 83 117/66 09/24/20 14:30 18 09/24/20 14:00 97.5 F L 20 09/24/20 13:36 75 107/71 09/24/20 12:30 20 09/24/20 12:15 18 09/24/20 11:10 18 09/24/20 11:01 18 09/24/20 10:51 97.7 F 85 20 109/66 Pain Intensity Bilateral Lower Abdomen: Pain Intensity: 0 Transfer of Care Handoff Completed per policy Notes Mental Status: alert / awake / arousable and participated in evaluation Nausea / Vomiting: adequately controlled Pain: adequately controlled Airway Patency, RR, SpO2: stable & adequate BP & HR: stable & adequate Hydration State: stable & adequate Neuraxial Anesthesia: was administered and sensory block is resolving Anesthetic Complications: no major complications apparent and Pt Satisfied with anesthetic care
--- NOTE | 2020-09-25 00:54 | Anesthesia Procedure Note ---
Date of Service September 25, 2020 Anesthesia Post Epidural Note Vital Signs Vital Signs: Temp Pulse Resp BP Pulse Ox 98.2 F 88 18 112/62 98 09/24/20 23:20 09/25/20 00:52 09/24/20 23:20 09/25/20 00:52 09/25/20 00:51 Pain Intensity Bilateral Lower Abdomen: Pain Intensity: 0 Notes Mental Status: alert / awake / arousable and participated in evaluation Nausea / Vomiting: adequately controlled Pain: adequately controlled Airway Patency, RR, SpO2: stable & adequate BP & HR: stable & adequate Hydration State: stable & adequate Neuraxial Anesthesia: was administered and sensory block is resolving Anesthetic Complications: no major complications apparent and Pt Satisfied with anesthetic care Epidural: Removed without complications and With tip intact
[2020-09-25 00:55] LABS: Base Excess Cord Arterial Bld -4.3 mEq/L (-9-1.8); Base Excess Cord Venous Blood -2.5 mEq/L (-7.7-1.9); CO2 Cord Arterial Blood 43 mmHg (39.1-73.5); Cord Venous Blood HCO3 23 mmol/L (18.4-26.8); Cord Venous Blood PCO2 41 mmHg (30.4-57.2); Cord Venous Blood PO2 33 mmHg (14.1-43.3); Cord Venous Blood pH 7.36 (7.20-7.44); HCO3 Cord Arterial Blood 22 mmol/L (19.7-28.5); PO2 Cord Arterial Blood 29 mmHg (4.1-31.7); pH Cord Arterial Blood 7.32 (7.1-7.38)
[2020-09-25] MEDS: KETOROLAC 30 MG/ML VIAL IV PRN ×3 (01:57→13:40)
[2020-09-25] MEDS: MEPERIDINE HCL 25 MG/ML CARP/VIAL IV PRN ×3 (04:28→12:38)
--- NOTE | 2020-09-25 07:32 | Operative Report (OR) ---
DATE OF OPERATION: 09/25/2020 PREOPERATIVE DIAGNOSES: The patient is a 25-year-old G1, P0 at 39 weeks and 6 days of gestation, who presented to labor and delivery in active labor and meconium-stained amniotic fluid, category 2 strip, persistent occiput posterior position and arrest of dilatation in active phase of labor. PREOPERATIVE DIAGNOSES: The patient is a 25-year-old G1, P0 at 39 weeks and 6 days of gestation, who presented to labor and delivery in active labor and meconium-stained amniotic fluid, category 2 strip, persistent occiput posterior position and arrest of dilatation in active phase of labor and nuchal cord. PROCEDURE: Primary low transverse with Pfannenstiel skin incision, delivery of a viable female at 0003 hours. SURGEON: Vin Diggs MD CLINICAL SERVICES MANAGER: Dr. Mendieta. ESTIMATED BLOOD LOSS: 600 mL. ANESTHESIA: Labor epidural. ANESTHESIOLOGIST: Dr. Lou. DRAINS: Rosenbaum catheter drained 100 mL of urine. COMPLICATIONS: None. FINDINGS: Baby was a viable female delivered at 0003 hours. Apgars were 5/8, weight was 2980 grams, in direct occiput posterior position with a nuchal cord. MATERNAL FINDINGS: Normal uterus, fallopian tubes, and ovaries. DESCRIPTION OF PROCEDURE: The patient was taken to the operating room where epidural anesthesia was given that was found to be adequate. She was placed in dorsal supine position with a leftward tilt. She was prepared and draped in usual sterile fashion. A Pfannenstiel skin incision was made and carried through to the underlying layer of fascia with the Bovie. Fascia was incised in the midline and incision was extended laterally with the help of the tip of Bovie. Upper aspect of the fascial incision was grasped with 2 Leonard clamps, elevated. Underlying rectus muscles were dissected sharply with Barillas scissors. Lower aspect of the fascial incision was then grasped with 2 Leonard clamps, elevated. Underlying rectus muscles were dissected off sharply with Barillas scissors. Rectus muscles were in the midline. Peritoneum was entered bluntly. Peritoneal incision was extended superiorly and inferiorly with good visualization of the bladder and bladder blade was inserted. Vesicouterine peritoneum was identified, grasped with pickups, entered sharply with Metzenbaum scissors, and vesicouterine flap was created digitally and bladder blade was reinserted. Lower uterine segment was incised in a transverse fashion. Incision was extended laterally with the help of fingers. Membranes were ruptured and there we came across with loops of cord coming from the incision. The head was brought up to the incision. The patient had kind of tense muscular tone in rectus abdominis muscles and in pelvis. After the head was brought to the incision, it was delivered with a cord around it in less than a minute and then shoulders were delivered with minimal traction. Mouth and nose were suctioned. Cord was clamped x2 and cut. Baby was handed to the waiting pediatric team. Cord blood was obtained. Then the placenta was delivered manually as intact and complete. I was unable to exteriorize the uterus due to muscular tension. Uterus cavity was cleaned with sponges and felt to be empty. The uterine incision was grasped with 3 ring forceps and it was repaired with 0 Vicryl in a running locked fashion and a second imbricating layer was placed with 0 Vicryl in a running locked fashion. Excellent hemostasis was achieved. Pelvis was irrigated with warm normal saline and suctioned. Incision was checked to be again hemostatic. Then parietal peritoneum was reapproximated with 0 Vicryl in a running fashion. Rectus muscles were also reapproximated with the same suture in a running fashion. Excellent hemostasis was noted on the rectus muscles and under the fascia. Rectus fascia was reapproximated with 0 Vicryl in a running fashion and then skin was closed in a subcuticular fashion with 4-0 Monocryl. The patient tolerated the procedure well. Sponge, lap, needle count was correct x3. No complications happened. I was present during whole procedure. The patient received 2 grams of cefazolin before surgery and 500 mg of azithromycin during surgery. She was taken to recovery room in stable condition. I attest to the content of the Intraoperative Record and any orders documented therein. Any exceptions are noted below. GEOFFD
[2020-09-25] MEDS: FERROUS SULFATE 325 MG TAB PO SCH (08:11)
[2020-09-25] MEDS: PRENATAL VITAMIN 1 TAB PO SCH (08:11)
[2020-09-25] MEDS: DOCUSATE SODIUM 100 MG CAP PO SCH ×2 (08:11→20:17)
[2020-09-25] MEDS: SIMETHICONE 80 MG CHEW PO SCH ×4 (08:11→20:17)
[2020-09-25] MEDS ORDERED: KETOROLAC 30 MG/ML VIAL IV PRN (18:19)
[2020-09-25] MEDS ORDERED: ONDANSETRON INJ 2 MG/ML 2 ML VIAL IV PRN (18:19)
[2020-09-25] MEDS ORDERED: oxyCODONE/ACETAMINOPHEN 5mg/325mg TAB PO PRN (18:19)
[2020-09-25] MEDS ORDERED: PROMETHAZINE HCL 25 MG in SODIUM CHLORIDE 0.9% 50 ML IV PRN (18:19)
[2020-09-25] MEDS ORDERED: MEPERIDINE HCL 50 MG/ML CARP IV PRN (18:19)
[2020-09-25] MEDS ORDERED: diphenhydrAMINE Capsule 25 MG CAP PO PRN (18:19)
[2020-09-25] MEDS: IBUPROFEN 600 MG TAB PO PRN (20:17)
[2020-09-25] MEDS ORDERED: ONDANSETRON 4 MG OD TAB PO PRN (21:03)
[2020-09-25] MEDS: ACETAMINOPHEN W/CODEINE #3 1 TAB PO PRN (21:11)
[2020-09-26] MEDS: ACETAMINOPHEN W/CODEINE #3 1 TAB PO PRN ×5 (02:22→20:46)
[2020-09-26] MEDS: IBUPROFEN 600 MG TAB PO PRN ×5 (02:22→20:47)
[2020-09-26 07:13] LABS: Basophils # (auto) 0.01 K/uL (0-0.2); Basophils % (auto) 0.1 %; Eosinophils # (auto) 0.11 K/uL (0-0.5); Eosinophils % (auto) 0.7 %; Hematocrit (blood only) 30.1 % (37-47); Hemoglobin 9.8 g/dL (12.0-16.0); Immature Granulocytes # (auto) 0.06 K/uL (0.00-0.02); Immature Granulocytes % (auto) 0.4 %; Lymphocytes # (auto) 2.25 K/uL (1.2-3.4); Lymphocytes % (auto) 14.8 %; Mean Corpuscular Hemoglobin 30.2 pg (25-34); Mean Corpuscular Hgb Conc 32.6 g/dL (32-36); Mean Corpuscular Volume 92.6 fL (80-100); Mean Platelet Volume 10.8 fL (7.4-10.4); Monocytes # (auto) 1.29 K/uL (0.11-0.59); Monocytes % (auto) 8.5 %; Neutrophils # (auto) 11.44 K/uL (1.4-6.5); Neutrophils % (auto) 75.5 %; Platelet Count 201 K/uL (130-400); RDW Coefficient of Variation 14.4 % (11.5-14.5); RDW Standard Deviation 48.5 fL (36.4-46.3); Red Blood Count 3.25 M/uL (4.2-5.4); White Blood Count 15.16 K/uL (4.8-10.8)
[2020-09-26] MEDS: SIMETHICONE 80 MG CHEW PO SCH ×4 (09:07→20:46)
[2020-09-26] MEDS: FERROUS SULFATE 325 MG TAB PO SCH (09:07)
[2020-09-26] MEDS: PRENATAL VITAMIN 1 TAB PO SCH (09:07)
[2020-09-26] MEDS: DOCUSATE SODIUM 100 MG CAP PO SCH ×2 (09:07→20:45)
--- NOTE | 2020-09-26 10:46 | Obstetrical Progress Note ---
Date of Service September 26, 2020 Assessment & Plan (1) delivery delivered: c/sec day #1 pt doing well antiicpate disch tomorrow Results & Data ([facility]) Vital Signs (Past 12 Hours) Vital Signs Temp Pulse Resp BP Pulse Ox 09/26/20 07:51 36.7 C 78 18 103/68 98 09/25/20 23:40 36.7 C 74 18 108/69
[2020-09-26] MEDS ORDERED: bisacodyL 5 MG TABEC PO SCH (20:00)
[2020-09-27] MEDS ORDERED: bisacodyL 10 MG SUPP PR PRN (00:42)
[2020-09-27] MEDS: ACETAMINOPHEN W/CODEINE #3 1 TAB PO PRN ×3 (01:04→08:28)
[2020-09-27] MEDS: IBUPROFEN 600 MG TAB PO PRN ×3 (01:05→08:28)
[2020-09-27 06:26] LABS: Hematocrit (blood only) 29.6 % (37-47); Hemoglobin 9.9 g/dL (12.0-16.0)
[2020-09-27] MEDS: SIMETHICONE 80 MG CHEW PO SCH (08:28)
[2020-09-27] MEDS: FERROUS SULFATE 325 MG TAB PO SCH (08:28)
[2020-09-27] MEDS: PRENATAL VITAMIN 1 TAB PO SCH (08:28)
[2020-09-27] MEDS: DOCUSATE SODIUM 100 MG CAP PO SCH (08:28)
--- NOTE | 2020-09-27 08:29 | Obstetrical Progress Note ---
Date of Service September 27, 2020 Assessment & Plan Admission and Anticipated Discharge Date Admission Date: September 24, 2020 Subjective Patient is seen and examined. She feels well, no complaints. Desires d/c today Pain is under control with oral meds. Ambulating without dizziness Voiding without difficulty Tolerating regular diet with out N&V Flatus + BM neg Bleeding is minimal No fever/ chills/ CP/ SOB/ N&V/ Leg pain Breast feeding without problems Vital Signs Temp Pulse Resp BP Pulse Ox 09/27/20 07:20 36.8 C 67 16 102/70 09/26/20 23:25 36.7 C 73 18 111/72 97 09/26/20 19:35 36.7 C 73 20 117/76 97 09/26/20 16:00 36.9 C 84 18 116/79 97 Lab Results 09/24/20 09/25/20 09/25/20 Range/Units 12:16 00:03 00:03 WBC 14.30 H (4.8-10.8) K/uL RBC 4.08 L (4.2-5.4) M/uL Hgb 12.5 (12.0-16.0) g/dL Hct 37.1 (37-47) % MCV 90.9 (80-100) fL MCH 30.6 (25-34) pg MCHC 33.7 (32-36) g/dL RDW Std Deviation 45.9 (36.4-46.3) fL RDW Coeff of Tegan 13.9 (11.5-14.5) % Plt Count 256 (130-400) K/uL MPV 10.6 H (7.4-10.4) fL Immature Gran % (Auto) % Neut % (Auto) % Lymph % (Auto) % Camden % (Auto) % Eos % (Auto) % Baso % (Auto) % Neut # (Auto) (1.4-6.5) K/uL Lymph # (Auto) (1.2-3.4) K/uL [place] # (Auto) (0.11-0.59) K/uL Eos # (Auto) (0-0.5) K/uL Baso # (Auto) (0-0.2) K/uL Immature Gran # (Auto) (0.00-0.02) K/uL Cord ABG pH 7.32 (7.1-7.38) Cord ABG pCO2 43 (39.1-73.5) mmHg Cord ABG pO2 29 (4.1-31.7) mmHg Cord ABG HCO3 22 (19.7-28.5) mmol/L Cord ABG Base Excess -4.3 (-9-1.8) mEq/L Cord ABG O2 Sat 63.0 H (<60) % Cord VBG pH 7.36 (7.20-7.44) Cord VBG pCO2 41 (30.4-57.2) mmHg Cord VBG pO2 33 (14.1-43.3) mmHg Cord VBG HCO3 23 (18.4-26.8) mmol/L Cord VBG Base Excess -2.5 (-7.7-1.9) mEq/L Cord VBG O2 Sat 74.0 H (<68) % Blood Gas Comments RIOS RIOS 09/26/20 09/27/20 Range/Units 06:42 06:03 WBC 15.16 H (4.8-10.8) K/uL RBC 3.25 L (4.2-5.4) M/uL Hgb 9.8 L 9.9 L (12.0-16.0) g/dL Hct 30.1 L 29.6 L (37-47) % MCV 92.6 (80-100) fL MCH 30.2 (25-34) pg MCHC 32.6 (32-36) g/dL RDW Std Deviation 48.5 H (36.4-46.3) fL RDW Coeff of Tegan 14.4 (11.5-14.5) % Plt Count 201 (130-400) K/uL MPV 10.8 H (7.4-10.4) fL Immature Gran % (Auto) 0.4 % Neut % (Auto) 75.5 % Lymph % (Auto) 14.8 % [place] % (Auto) 8.5 % Eos % (Auto) 0.7 % Baso % (Auto) 0.1 % Neut # (Auto) 11.44 H (1.4-6.5) K/uL Lymph # (Auto) 2.25 (1.2-3.4) K/uL [place] # (Auto) 1.29 H (0.11-0.59) K/uL Eos # (Auto) 0.11 (0-0.5) K/uL Baso # (Auto) 0.01 (0-0.2) K/uL Immature Gran # (Auto) 0.06 H (0.00-0.02) K/uL Cord ABG pH (7.1-7.38) Cord ABG pCO2 (39.1-73.5) mmHg Cord ABG pO2 (4.1-31.7) mmHg Cord ABG HCO3 (19.7-28.5) mmol/L Cord ABG Base Excess (-9-1.8) mEq/L Cord ABG O2 Sat (<60) % Cord VBG pH (7.20-7.44) Cord VBG pCO2 (30.4-57.2) mmHg Cord VBG pO2 (14.1-43.3) mmHg Cord VBG HCO3 (18.4-26.8) mmol/L Cord VBG Base Excess (-7.7-1.9) mEq/L Cord VBG O2 Sat (<68) % Blood Gas Comments PE: General: Alert, orientedx3, NAD CVS: S1S2 RRR Lungs; CTAB Abd: soft, NT, ND, BS+, fundus firm, below Umbilicus Incision: Clean, dry, intact Perineum intact, Lochia rubra minimal Ext; NT, no edema AP: 25 yo s/p C Section, pod# 2 VSS Afebrile doing well Continue routine postop care Encourage ambulation, PO intake All questions were answered Discussed when to call D/C home , f/u in office Results & Data ([facility]) Vital Signs (Past 12 Hours) Vital Signs Temp Pulse Resp BP Pulse Ox 09/27/20 07:20 36.8 C 67 16 102/70 09/26/20 23:25 36.7 C 73 18 111/72 97
--- NOTE | 2020-09-30 23:26 | Discharge Summary (DS) ---
DETAILS OF ADMISSION: The patient is a 25-year-old G1, P0 at 39 weeks and 5 days of gestation. She presented to labor and delivery on 09/24/2020 with regular contractions and cervical change. She was admitted for labor. Her vital signs were stable, afebrile. heart rate was reassuring and GBS was negative. Her cervix was 4 cm at admission and in the afternoon it changed to 5-6 cm, 80%, -2 station with bulging bag. It was artificially ruptured and light meconium-stained fluid was obtained. heart rate was category 1. After that, heart rate started having early decelerations with contractions, but good variability in between and she also had a prolonged deceleration to the 90s for about 6 minutes, which was recovered with position change, IV fluid bolus and nasal oxygen. heart rate was in between category 1 and category 2 during labor and then head was found to be high and occiput posterior, direction facing up by physical exam as well as with the ultrasound. The patient kept having recurrent decelerations and has not changed her cervix neither the position of the head and decision was made to proceed with section. She delivered a viable female on 09/24/2020 at 0003 a.m. See dictated op note for details. On postop period, the patient was doing well. Vital signs stable, afebrile. Urine output was adequate. On postop day #2, the patient was doing well. Vital signs stable, afebrile. Physical exam was unremarkable. Incision was clean, dry and intact. Abdomen was soft, nontender. Fundus was firm. Her H and H was 9.9/29.6. She desired to go home on postop day #2. Discharge instructions were given. Prescriptions were written for pain. She is to be seen in office in a week for incision check. All questions were answered. [id number]
== END 2020-09-27 11:50 | disposition home or self-care (01) | DRG 788 ==
LOC: OPB 10:45 → 4S1 10:48 → 4S2 09-25 03:40